=== PATIENT | male | born 1980 | race Caucasian/White ===

== ENCOUNTER 2017-01-17 05:18 | Inpatient (IN) | payer SELFPAY ==
[~2017-01-17] VITALS: Ht 170.2 cm; Wt 73.0 kg
[~2017-01-17 05:18] MED LIST: METF500T4 PO
[2017-01-17] MEDS ORDERED: SODIUM CHLORIDE 0.9% 1,000 ML IV ONE ×2 (05:32→06:32)
[2017-01-17] MEDS ORDERED: ALBUTEROL (0.083%) 2.5MG/3ML NEB HHN STA (05:32)
[2017-01-17] MEDS ORDERED: IPRATROPIUM BROMIDE (0.02%) 0.5MG/2.5ML NEB HHN STA (05:32)
[2017-01-17] MEDS ORDERED: METHYLPREDNISOLONE SOD SUCC 125 MG/2 ML VIAL IV STA (05:32)
[2017-01-17] MEDS ORDERED: MAGNESIUM 2 G PREMIX 50 ML IV ONE (05:45)
[2017-01-17] MEDS ORDERED: ASPIRIN 81MG TABLET PO ONE (05:45)
[2017-01-17 05:52] LABS: BASOPHILS % 0.3 % (0.0-2.0); EOSINOPHILS % 0.2 % (0.0-5.0); HEMATOCRIT. 41.6 % (42.0-52.0); HEMOGLOBIN. 14.7 g/dL (14.0-18.0); MEAN CORPUSCULAR HEMOGLOBIN 31.4 pg (28.0-32.0); MEAN CORPUSCULAR VOLUME 88.8 fL (80.0-94.0); MEAN PLATELET VOLUME 8.3 fl (7.4-10.4); MONOCYTES % 9.6 % (2.0-8.0); NEUTROPHILS % 64.9 % (40.0-76.0); PLATELET 212 x1000/uL (130-400); RED BLOOD CELL COUNT 4.69 mill/uL (4.7-6.1); RED CELL DISTRIBUTION WIDTH 12.6 % (11.6-14.6)
[2017-01-17 05:56] LABS: INR 1.1; PROTHROMBIN TIME 10.9 sec (9.4-11.6)
[2017-01-17 06:08] LABS: CARBON DIOXIDE 21 mEq/L (21-32); CHLORIDE 103 mEq/L (98-107); ETHANOL BLOOD 249 mg/dL
[2017-01-17 06:10] LABS: BG BASE EXCESS -9.1 mmol/L (-2.0-2.0); BG CARBOXYHEMOGLOBIN 0.9 % (0.5-1.5); BG DEOXYHEMOGLOBIN 3.7 % (0.0-5.0); BG FRACTION INSPIRED OXYGEN 21; BG HCO3 ACT 16.9 mmol/L (22.0-26.0); BG METHEMOGLOBIN 0.2 % (0.0-1.5); BG OXYGEN SATURATION 96.3 % (92.0-98.5); BG OXYHEMOGLOBIN 95.2 % (94.0-97.0); BG PCO2 37.5 mmHg (35.0-45.0); BG PH 7.273 (7.350-7.450); BG PO2 101.3 mmHg (75.0-100.0); BG SAMPLE SITE RIGHT RADIAL; BG TOTAL HEMOGLOBIN 13.4 g/dL (12.0-18.0); BG VENT MODE ROOM AIR
[2017-01-17 06:45] LABS: CLARITY URINE CLEAR (CLEAR); COLOR URINE YELLOW (YELLOW); GLUCOSE URINE 3+ (NEGATIVE); KETONES URINE NEGATIVE (NEGATIVE); LEUKOCYTE ESTERASE URINE NEGATIVE (NEGATIVE); NITRITE URINE NEGATIVE (NEGATIVE); OCCULT BLOOD URINE NEGATIVE (NEGATIVE); PROTEIN URINE NEGATIVE (NEGATIVE); SPECIFIC GRAVITY URINE 1.016 (1.005-1.030); UROBILINOGEN URINE 0.2 E.U./dL (0.2-1.0)
[2017-01-17] MEDS ORDERED: INSULIN REGULAR (HUMULIN R) 300UNITS/3ML IV ONE (06:45)
[2017-01-17 06:57] LABS: BETA HYDROXYBUTYRATE 0.2 mMol/L (0.0-0.3); CREATINE KINASE 610 IU/L (39-308); CREATINE KINASE MB FRACTION 5.8 ng/mL (0.5-3.6); TROPONIN I < 0.02 ng/mL (0.00-0.04)
[2017-01-17 06:59] LABS: *AMPHETAMINES SCREEN URINE NEGATIVE (NEGATIVE); *BARBITURATES SCREEN URINE NEGATIVE (NEGATIVE); *BENZODIAZEPINES SCREEN URINE NEGATIVE (NEGATIVE); *COCAINE SCREEN URINE NEGATIVE (NEGATIVE); CANNABINOID URINE SCREEN NEGATIVE (NEGATIVE); METHADONE URINE SCREEN NEGATIVE (NEGATIVE); OPIATES URINE SCREEN NEGATIVE (NEGATIVE); PHENCYCLIDINE URINE SCREEN NEGATIVE (NEGATIVE)
[2017-01-17 08:05] VITALS: BP 101/57
[2017-01-17 09:34] VITALS: BP 101/57
[2017-01-17] MEDS ORDERED: IPRATROPIUM/ALBUTEROL 0.5-3(2.5)MG/3ML NEB INH PRN (10:00)
[2017-01-17] MEDS ORDERED: DEXTROSE 50% WATER 50ML SYRINGE IV PRN (10:00)
[2017-01-17] MEDS ORDERED: ONDANSETRON HCL 4MG/2ML VIAL IV PRN (10:00)
[2017-01-17] MEDS: SODIUM CHLORIDE 0.9% 1,000 ML IV SCH ×2 (11:16→23:32)
[2017-01-17] MEDS: GLYBURIDE 5MG TABLET PO SCH (11:16)
[2017-01-17 12:00] VITALS: BP 120/65
[2017-01-17] MEDS: BLOOD SUGAR DIAGNOSTIC STRIP TEST SCH ×3 (13:07→21:11)
[2017-01-17] MEDS: INSULIN LISPRO 100 UNITS/ML SUBCUT SCH ×3 (13:17→21:10)
[2017-01-17] MEDS: SODIUM CHLORIDE 0.9% INJ 3ML FLUSH IVF SCH ×2 (13:59→21:11)
[2017-01-17 16:00] VITALS: BP_SYST 125; BP_SYST 135; BP_DIAS 75; BP_DIAS 80
[2017-01-17 17:51] LABS: CREATINE KINASE 375 IU/L (39-308); TROPONIN I < 0.02 ng/mL (0.00-0.04)
[2017-01-17 20:00] VITALS: BP 127/71
[2017-01-17] MEDS ORDERED: GLYB5TAB7 PO (21:21)
[2017-01-17] MEDS ORDERED: THIAMINE HCL 100MG TABLET PO NR (21:30)
[2017-01-18] VITALS: BP 126/72
[2017-01-18 00:21] LABS: CREATINE KINASE 304 IU/L (39-308); TROPONIN I < 0.02 ng/mL (0.00-0.04)
[2017-01-18 04:00] VITALS: BP 129/86
[2017-01-18] MEDS ORDERED: ACETAMINOPHEN 325MG TABLET PO PRN (04:30)
[2017-01-18] MEDS: SODIUM CHLORIDE 0.9% INJ 3ML FLUSH IVF SCH (05:37)
[2017-01-18 07:16] LABS: BASOPHILS % 0.4 % (0.0-2.0); EOSINOPHILS % 0.3 % (0.0-5.0); HEMOGLOBIN. 12.9 g/dL (14.0-18.0); LYMPHOCYTES % 18.6 % (20.0-50.0); MEAN CORPUSCULAR HEMOGLOBIN 31.8 pg (28.0-32.0); MEAN CORPUSCULAR VOLUME 89.3 fL (80.0-94.0); MEAN PLATELET VOLUME 8.8 fl (7.4-10.4); MONOCYTES % 8.3 % (2.0-8.0); NEUTROPHILS % 72.4 % (40.0-76.0); PLATELET 179 x1000/uL (130-400); RED BLOOD CELL COUNT 4.04 mill/uL (4.7-6.1); RED CELL DISTRIBUTION WIDTH 12.7 % (11.6-14.6)
[2017-01-18 07:56] LABS: CARBON DIOXIDE 25 mEq/L (21-32); CHLORIDE 104 mEq/L (98-107)
[2017-01-18 08:00] VITALS: BP 115/82
[2017-01-18] MEDS: BLOOD SUGAR DIAGNOSTIC STRIP TEST SCH ×2 (08:10→13:11)
[2017-01-18] MEDS: INSULIN LISPRO 100 UNITS/ML SUBCUT SCH (08:13)
[2017-01-18] MEDS: GLYBURIDE 5MG TABLET PO SCH (08:27)
[2017-01-18] MEDS ORDERED: FOLIC ACID 1MG TABLET PO SCH (09:00)
[2017-01-18] MEDS ORDERED: THIAMINE HCL 100MG TABLET PO SCH (09:00)
[2017-01-18 10:35] VITALS: BP 130/50
[2017-01-18 12:00] VITALS: BP 116/69
== END 2017-01-18 13:10 | disposition home or self-care (01) | DRG 775 ==
LOC: ER 05:18 → 7WST 06:32 → ENRESERV 07:34
PROVIDERS: ADMIT Family Medicine; ATTEND Family Medicine
DX: F10.129 Alcohol abuse with intoxication, unspecified (principal); G93.40 Encephalopathy, unspecified; E11.65 Type 2 diabetes mellitus with hyperglycemia; Z96.659 Presence of unspecified artificial knee joint; Z82.49 Family history of ischemic heart disease and other diseases of the circulatory system; Z83.3 Family history of diabetes mellitus
CPT/HCPCS: 36415; 36600; 71010; 80053; 80305; 81001; 82010; 82375; 82550; 82553; 82805; 82962; 83036; 83605; 83880; 84484; 85025; 85610; 93005; 94640; 96374; 99291; G0482; J1815; J2930; J7030; J7611

== ENCOUNTER 2018-01-31 01:34 | Emergency (ER) | payer SELFPAY ==
[~2018-01-31] VITALS: Ht 165.1 cm; Wt 68.0 kg
[~2018-01-31 01:34] MED LIST changes: +GLYB5TAB7 PO; -METF500T4 PO
[2018-01-31] MEDS ORDERED: SODIUM CHLORIDE 0.9% 1,000 ML IV ONE (02:31)
[2018-01-31 03:12] LABS: BASOPHILS % 0.5 % (0.0-2.0); EOSINOPHILS % 0.7 % (0.0-5.0); HEMATOCRIT. 39.3 % (42.0-52.0); HEMOGLOBIN. 13.8 g/dL (14.0-18.0); LYMPHOCYTES % 27.6 % (20.0-50.0); MEAN CORPUSCULAR HEMOGLOBIN 31.6 pg (28.0-32.0); MEAN CORPUSCULAR VOLUME 90.4 fL (80.0-94.0); MEAN PLATELET VOLUME 8.2 fl (7.4-10.4); MONOCYTES % 6.4 % (2.0-8.0); NEUTROPHILS % 64.8 % (40.0-76.0); PLATELET 211 x1000/uL (130-400); RED BLOOD CELL COUNT 4.35 mill/uL (4.7-6.1); RED CELL DISTRIBUTION WIDTH 12.2 % (11.6-14.6)
[2018-01-31 03:24] LABS: CHLORIDE 98 mEq/L (98-107)
[2018-01-31 03:30] LABS: ETHANOL BLOOD 291 mg/dL
[2018-01-31 09:11] VITALS: BP 112/75
== END 2018-01-31 09:13 | disposition home or self-care (01) ==
LOC: ER 01:34
DX: F10.229 Alcohol dependence with intoxication, unspecified (principal); E11.65 Type 2 diabetes mellitus with hyperglycemia; Y90.8 Blood alcohol level of 240 mg/100 ml or more; Z96.659 Presence of unspecified artificial knee joint
CPT/HCPCS: 36415; 80053; 85025; 96360; 96361; 99285; G0482; J7030

== ENCOUNTER 2018-10-09 05:46 | Emergency (ER) | payer SELFPAY ==
[~2018-10-09] VITALS: Ht 170.2 cm; Wt 70.0 kg
[2018-10-09] MEDS ORDERED: SODIUM CHLORIDE 0.9% 1,000 ML IV ONE (06:13)
[2018-10-09] MEDS ORDERED: ONDANSETRON HCL 4MG/2ML INJ IV ONE (06:15)
[2018-10-09 06:35] LABS: BASOPHILS % 0.6 % (0.0-2.0); EOSINOPHILS % 1.4 % (0.0-5.0); HEMATOCRIT. 36.1 % (42.0-52.0); HEMOGLOBIN. 12.6 g/dL (14.0-18.0); LYMPHOCYTES % 29.1 % (20.0-50.0); MEAN CORPUSCULAR HEMOGLOBIN 31.1 pg (28.0-32.0); MEAN CORPUSCULAR VOLUME 88.9 fL (80.0-94.0); MEAN PLATELET VOLUME 8.6 fl (7.4-10.4); MONOCYTES % 5.3 % (2.0-8.0); NEUTROPHILS % 63.6 % (40.0-76.0); PLATELET 193 x1000/uL (130-400); RED BLOOD CELL COUNT 4.06 mill/uL (4.7-6.1); RED CELL DISTRIBUTION WIDTH 12.2 % (11.6-14.6)
[2018-10-09 06:42] LABS: CHLORIDE 101 mEq/L (98-107)
[2018-10-09 06:47] LABS: ETHANOL BLOOD 227 mg/dL
[2018-10-09 06:49] LABS: CLARITY URINE CLEAR (CLEAR); COLOR URINE YELLOW (YELLOW); KETONES URINE NEGATIVE (NEGATIVE); LEUKOCYTE ESTERASE URINE TRACE (NEGATIVE); NITRITE URINE NEGATIVE (NEGATIVE); OCCULT BLOOD URINE NEGATIVE (NEGATIVE); PH URINE 5.5 (4.5-8.0); PROTEIN URINE NEGATIVE (NEGATIVE); SPECIFIC GRAVITY URINE 1.007 (1.005-1.030); UROBILINOGEN URINE 0.2 E.U./dL (0.2-1.0)
[2018-10-09 06:52] LABS: BETA HYDROXYBUTYRATE 0.3 mMol/L (0.0-0.3)
[2018-10-09 07:04] LABS: *AMPHETAMINES SCREEN URINE NEGATIVE (NEGATIVE)
[2018-10-09 07:05] LABS: *BARBITURATES SCREEN URINE NEGATIVE (NEGATIVE); *BENZODIAZEPINES SCREEN URINE NEGATIVE (NEGATIVE); *COCAINE SCREEN URINE NEGATIVE (NEGATIVE); METHADONE URINE SCREEN NEGATIVE (NEGATIVE); OPIATES URINE SCREEN NEGATIVE (NEGATIVE); PHENCYCLIDINE URINE SCREEN NEGATIVE (NEGATIVE)
[2018-10-09 07:06] LABS: CANNABINOID URINE SCREEN NEGATIVE (NEGATIVE)
[2018-10-09] MEDS ORDERED: INSULIN REGULAR (HUMULIN R) 300UNITS/3ML IV ONE (07:30)
[2018-10-09 10:27] VITALS: BP 120/75
== END 2018-10-09 10:30 | disposition home or self-care (01) ==
LOC: ER 05:46
DX: G92 Toxic encephalopathy (principal); F10.129 Alcohol abuse with intoxication, unspecified; E11.65 Type 2 diabetes mellitus with hyperglycemia; Z82.49 Family history of ischemic heart disease and other diseases of the circulatory system; Z83.3 Family history of diabetes mellitus; Y90.8 Blood alcohol level of 240 mg/100 ml or more
CPT/HCPCS: 36415; 70450; 71045; 80053; 80305; 80307; 80320; 80329; 81003; 82010; 82962; 85025; 93005; 96361; 96374; 96375; 99284; J1815; J2405; J7030; G0480